=== PATIENT | female | born 1940 | race Caucasian/White ===

== ENCOUNTER 2016-09-02 10:50 | Emergency (ER) | payer MEDICARE ==
--- NOTE | ~2016-09-02 | CR281 ---
[facility] A Service of [facility] RADIOLOGY TEXT RESULTS PATIENT: MARGAUX KATHLEEN LOCATION: SED : 41 UNIT #: [id number] AGE: [address]: Ge Thomas MD SEX: F ORDER DR: [id number] [address] [address] [id number] E MR#: [id number] Acc #: [id number] NAME: MARGAUX KATHLEEN : 1940 SEX: F STUDY DATE/TIME: 09/02/2016 09:54 UNIT: SED ROOM: STUDY DESCRIPTION: CR Wrist Min 3 View Lt Attending Physician: Ge Thomas M.D. Ordering Physician: Ge Thomas M.D. Primary Care Physician: Betsey Antonio A.P.R.N. MEDICAL IMAGING REPORT This report is preliminary unless electronic signature is present. EXAM Left wrist 3 views 09/02/2016 0954 hours HISTORY 76-year-old complaining of 4-day history of left wrist pain and swelling after lifting a pool table 4 days ago. COMPARISON None. FINDINGS AP, lateral and oblique views suggest mild osteopenia. Distal radius and ulnar are intact. There is no fracture in the carpal bones or metacarpals. No significant degenerative change. IMPRESSION Mild osteopenia with no fracture or significant degenerative change. Dictated by... Deisi Martinez M.D. THIS IS AN ELECTRONICALLY VERIFIED REPORT Deisi Martinez M.D. at 09/02/2016 2:07 PM NICOLASA/andrea TD: 09/02/2016 12:30 JOB #: [id number] MEDICAL IMAGING REPORT Page 1 of 1
[~2016-09-02 10:50] MED LIST: ASPIRIN81 MG PO; CARDIZEM SR PO; CARTIA XT PO; FISH OIL300 MG; HCTZ PO; HYZAAR 50-12.51 TAB PO; IMDUR PO; K-DUR10 MEQ; KEFLEX; LIPITOR; LOSARTAN POTASS50 MG PO; LOSARTAN-HCTZ1 EAC1 PO; PREDNISONE PO; REGLAN10 MG PO; TRAMADOL HCL50 M2 PO
== END 2016-09-02 10:52 | disposition home or self-care (01) ==
LOC: SED 10:50
DX: M25.532 Pain in left wrist (principal); I10 Essential (primary) hypertension; Z88.5 Allergy status to narcotic agent; Z79.82 Long term (current) use of aspirin; Z79.899 Other long term (current) drug therapy
CPT/HCPCS: 29125; 73110; 99283

== ENCOUNTER 2016-09-21 16:06 | Emergency (ER) | payer OTHER ==
--- NOTE | ~2016-09-21 | CR282 ---
[facility] A Service of [facility] RADIOLOGY TEXT RESULTS PATIENT: MARGAUX KATHLEEN LOCATION: SED : 41 UNIT #: [id number] AGE: [address]: Tess Kumar APRN SEX: F ORDER DR: [id number] [place] [address] [id number] E MR#: [id number] Acc #: [id number] NAME: MARGAUX KATHLEEN : 1940 SEX: F STUDY DATE/TIME: 09/21/2016 16:49 UNIT: SED ROOM: STUDY DESCRIPTION: CR Wrist Min 3 View Rt Attending Physician: Tess Kumar A.P.R.N. Ordering Physician: Tess Kumar A.P.R.N. Primary Care Physician: Betsey Antonio A.P.R.N. MEDICAL IMAGING REPORT This report is preliminary unless electronic signature is present. EXAM Right wrist. CLINICAL HISTORY Pain in fingers up to wrist, tingling and numbness starting last night. No known injury. COMMENT 3 views of the right wrist reviewed. COMPARISON No prior. FINDINGS There is no acute fracture, dislocation or radiopaque foreign body. Degenerative changes are noted at the medial carpus most apparent at the first carpometacarpal joint. Mineralization is age appropriate. IMPRESSION Mild changes of osteoarthritis. Dictated by... Mery Apple M.D. THIS IS AN ELECTRONICALLY VERIFIED REPORT Mery Apple M.D. at 09/21/2016 9:32 PM GAGE/babita TD: 09/21/2016 18:45 JOB #: [id number] [facility] A Service [facility] RADIOLOGY TEXT RESULTS PATIENT: MARGAUX KATHLEEN LOCATION: SED : 41 UNIT #: [id number] AGE: [address]: Tess Kumar APRN SEX: F ORDER DR: MEDICAL IMAGING REPORT Page 1 of 1
--- NOTE | ~2016-09-21 | CR142 ---
[facility] A Service of [facility] RADIOLOGY TEXT RESULTS PATIENT: MARGAUX KATHLEEN LOCATION: SED : 41 UNIT #: [id number] AGE: [address]: Tess Kumar APRN SEX: F ORDER DR: [id number] [place] [address] [id number] E MR#: [id number] Acc #: [id number] NAME: MARGAUX KATHLEEN : 1940 SEX: F STUDY DATE/TIME: 09/21/2016 16:49 UNIT: SED ROOM: STUDY DESCRIPTION: CR Hand Min 3 Views Rt Attending Physician: Tess Kumar A.P.R.N. Ordering Physician: Tess Kumar A.P.R.N. Primary Care Physician: Betsey Antonio A.P.R.N. MEDICAL IMAGING REPORT This report is preliminary unless electronic signature is present. EXAM Hand, 3 views, right. HISTORY Pain and tingling in the fingers starting last evening. No known injury, numbness. COMMENT 3 views of the right hand reviewed. COMPARISON No comparison. FINDINGS There is osteoarthritis with particular involvement of the second DIP joint. No acute fracture or bone destruction. No radiopaque foreign body. IMPRESSION 1. Changes of osteoarthritis with most severe involvement at the second DIP joint. Dictated by... Mery Apple M.D. THIS IS AN ELECTRONICALLY VERIFIED REPORT Mery Apple M.D. at 09/21/2016 9:32 PM GAGE/babita TD: 09/21/2016 18:47 [facility] A Service [facility] RADIOLOGY TEXT RESULTS PATIENT: MARGAUX KATHLEEN LOCATION: SED : 41 UNIT #: [id number] AGE: [address]: Tess Kumar APRN SEX: F ORDER DR: DEDRA #: [id number] MEDICAL IMAGING REPORT Page 1 of 1
== END 2016-09-21 17:45 | disposition home or self-care (01) ==
LOC: SED 16:06
DX: G56.01 Carpal tunnel syndrome, right upper limb (principal); I10 Essential (primary) hypertension; E78.00 Pure hypercholesterolemia, unspecified; Z79.82 Long term (current) use of aspirin; Z79.899 Other long term (current) drug therapy; Z88.5 Allergy status to narcotic agent; X58.XXXA Exposure to other specified factors, initial encounter; Y92.9 Unspecified place or not applicable
CPT/HCPCS: 29125; 73110; 73130; 99283